=== PATIENT | male | born 1960 | race Two or more races ===

== ENCOUNTER 2017-12-15 17:00 | Emergency (ER) | payer MEDICAID ==
[~2017-12-15] VITALS: Ht 165.1 cm; Wt 49.4 kg
[2017-12-15 18:27] LABS: Basophils # (auto) 0 uL; Basophils % (auto) 0.4 % (0.0-2.0); Eosinophils # (auto) 0.2 uL; Eosinophils % (auto) 1.9 % (0.0-7.0); Hematocrit 43.7 % (41.0-53.0); Hemoglobin 14.6 g/dL (13.5-17.5); Lymphocytes # (auto) 4.9 uL; Lymphocytes % (auto) 52.7 % (10.0-50.0); Mean Corpuscular Hgb Conc. 33.3 g/dL (32.0-36.0); Mean Corpuscular Volume 90.1 fL (80.0-100.0); Monocytes # (auto) 0.7 uL; Monocytes % (auto) 7.3 % (0.0-12.0); Neutrophils # (auto) 3.5 uL; Neutrophils % (auto) 37.7 % (37.0-80.0); Nucleated Red Blood Cells % 0.4 %; Platelet Count (auto) 305 10^3/uL (140-450); Red Blood Cells 4.85 10^6/uL (4.5-5.90); Red Cell Distribution Width 15.4 % (11.8-14.3); White Blood Cell 9.4 10^3/uL (4.4-10.8)
[2017-12-15 18:49] LABS: Alanine Aminotransferase 20 U/L (16-61); Albumin 3.6 g/dL (3.4-5.0); Anion Gap 8 (5-15); Aspartate Aminotransferase 40 U/L (15-37); BUN/Creatinine Ratio 10.3; Blood Urea Nitrogen 10 mg/dL (7-18); Calcium 8.3 mg/dL (8.5-10.1); Carbon Dioxide 26 mmol/L (21-32); Chloride 98 mmol/L (98-107); GFR African American 102 mL/min; GFR Non-African American 84 mL/min; Glucose 105 mg/dL (74-106); Potassium 4.3 mmol/L (3.5-5.1); Sodium 132 mmol/L (136-145)
[2017-12-15 18:53] LABS: Alkaline Phosphatase 154 U/L (45-117); Bilirubin, Total 0.6 mg/dL (0.2-1.0); Total Protein 8.4 g/dL (6.4-8.2)
[2017-12-15] MEDS ORDERED: IOHEXOL 300 MG/ML 100ML BOTTLE IJ ONE (21:33)
[2017-12-15] MEDS ORDERED: SODIUM CHLORIDE 0.9% 1,000 ML IV ONE (22:00)
[2017-12-15] MEDS ORDERED: LEVOFLOXACIN 250 MG TAB PO ONE (23:00)
[2017-12-16 01:00] VITALS: BP 110/76
== END 2017-12-16 03:24 | disposition home or self-care (01) ==
LOC: ER 17:00
DX: J20.9 Acute bronchitis, unspecified (principal)
CPT/HCPCS: 36415; 71046; 71260; 80053; 84484; 85025; 96360; 99285; Q9967

== ENCOUNTER 2017-12-30 14:37 | Emergency (ER) | payer MEDICAID ==
[~2017-12-30] VITALS: Ht 162.6 cm; Wt 54.4 kg
[2017-12-30] MEDS ORDERED: ASPirin 81 mg TAB PO ONE (15:30)
[2017-12-30 15:52] LABS: Basophils # (auto) 0.1 uL; Basophils % (auto) 0.6 % (0.0-2.0); Eosinophils # (auto) 0.2 uL; Eosinophils % (auto) 1.9 % (0.0-7.0); Hematocrit 39.5 % (41.0-53.0); Lymphocytes # (auto) 4.4 uL; Lymphocytes % (auto) 39.5 % (10.0-50.0); Mean Corpuscular Hemoglobin 29.6 pg (28.0-32.0); Mean Corpuscular Hgb Conc. 32.9 g/dL (32.0-36.0); Mean Corpuscular Volume 89.9 fL (80.0-100.0); Monocytes # (auto) 0.5 uL; Monocytes % (auto) 4.7 % (0.0-12.0); Neutrophils # (auto) 5.9 uL; Neutrophils % (auto) 53.3 % (37.0-80.0); Nucleated Red Blood Cells % 0.3 %; Platelet Count (auto) 250 10^3/uL (140-450); Red Blood Cells 4.39 10^6/uL (4.5-5.90); White Blood Cell 11.1 10^3/uL (4.4-10.8)
[2017-12-30 16:20] LABS: Alanine Aminotransferase 18 U/L (16-61); Albumin 3.7 g/dL (3.4-5.0); Alkaline Phosphatase 148 U/L (45-117); Anion Gap 6 (5-15); Aspartate Aminotransferase 44 U/L (15-37); BUN/Creatinine Ratio 14.1; Bilirubin, Total 1.5 mg/dL (0.2-1.0); Blood Urea Nitrogen 11 mg/dL (7-18); Calcium 8.6 mg/dL (8.5-10.1); Carbon Dioxide 28 mmol/L (21-32); Chloride 101 mmol/L (98-107); GFR African American 131 mL/min; GFR Non-African American 108 mL/min; Glucose 95 mg/dL (74-106); Potassium 4.4 mmol/L (3.5-5.1); Sodium 135 mmol/L (136-145); Total Protein 8.5 g/dL (6.4-8.2)
[2017-12-30 19:49] VITALS: BP 135/85
== END 2017-12-30 20:08 | disposition home or self-care (01) ==
LOC: ER 14:37
DX: J40 Bronchitis, not specified as acute or chronic (principal)
CPT/HCPCS: 36415; 71045; 76705; 80053; 84484; 85025; 93005

== ENCOUNTER 2022-04-27 16:57 | Inpatient (IN) | payer MEDICAID ==
[~2022-04-27] VITALS: Ht 167.6 cm; Wt 144.4 kg
[2022-04-27 18:33] LABS: Albumin 4.2 g/dL (3.4-5.0); Calcium 8.3 mg/dL (8.5-10.1); Potassium 4.5 mmol/L (3.5-5.1)
[2022-04-27 18:35] LABS: Hematocrit 18.4 % (41.0-53.0); Mean Corpuscular Hemoglobin 18.2 pg (28.0-32.0); Mean Corpuscular Hgb Conc. 31.4 g/dL (32.0-36.0); Red Blood Cells 3.17 10^6/uL (4.5-5.90); Red Cell Distribution Width 24.4 % (11.8-14.3); White Blood Cell 9.2 10^3/uL (4.4-10.8)
[2022-04-27 18:48] LABS: BUN/Creatinine Ratio 12.9; Bilirubin, Total 1.5 mg/dL (0.2-1.0); Total Protein 8.6 g/dL (6.4-8.2)
[2022-04-27 18:52] LABS: Hemoglobin 5.8 g/dL (13.5-17.5)
[2022-04-27 18:53] LABS: INR 1.04 (0.9-1.15)
[2022-04-27 18:56] LABS: Band Neutrophils % (manual) 0; Basophils % (manual) 0 (0.0-2.0); Blast Cells 0; Metamyelocytes % 0; Myelocytes % 0; Promyelocytes % 0
[2022-04-27 19:25] LABS: Partial Thromboplastin Time 23.8 sec (24.6-33.4)
[2022-04-27 19:44] LABS: Eosinophils % (manual) 1 (0-7); Lymphocytes % (manual) 67 (10.0-50.0); Monocytes % (manual) 4 (0-12); Reactive Lymphocytes 4
[2022-04-27] MEDS ORDERED: DOCUSATE SOD 100 MG CAP PO PRN (23:00)
[2022-04-27] MEDS ORDERED: SODIUM CHLORIDE 0.9% 1,000 ML IV SCH (23:00)
[2022-04-27] MEDS ORDERED: ACETAMINOPHEN 325 MG TAB PO PRN (23:00)
[2022-04-27] MEDS ORDERED: HYDROcodone-ACET 5/325MG TAB PO PRN (23:00)
[2022-04-27] MEDS ORDERED: ONDANSETRON HCL 4 MG/2 ML VIAL IV PRN (23:00)
[2022-04-28] VITALS (12 sets, daily range): BP systolic 105–124; BP diastolic 56–76
[2022-04-28] MEDS ORDERED: MORPHINE SULFATE INJ 2 MG/ml SYRG IV PRN (00:15)
[2022-04-28] MEDS ORDERED: NITROGLYCERIN 0.4 MG SL TAB SL PRN (00:15)
[2022-04-28] MEDS: MULTIPLE VITAMIN TAB PO SCH (09:23)
[2022-04-28] MEDS: THIAMINE 100mg/ml INJ (200mg/2ml VIAL) IV SCH (09:23)
[2022-04-28] MEDS: FAMOTIDINE (10MG/ML) 2ML VL IV SCH (09:23)
[2022-04-28] MEDS ORDERED: MULTIPLE VITAMIN TAB PO SCH (10:00)
[2022-04-28] MEDS ORDERED: ENOXAPARIN SOD 40 MG/0.4 ML SYRINGE SC SCH (10:00)
[2022-04-28 10:30] LABS: Mean Corpuscular Hgb Conc. 32.5 g/dL (32.0-36.0); White Blood Cell 8.2 10^3/uL (4.4-10.8)
[2022-04-28 10:33] LABS: Hematocrit 26.2 % (41.0-53.0); Hemoglobin 8.5 g/dL (13.5-17.5); Mean Corpuscular Hemoglobin 21.5 pg (28.0-32.0); Mean Corpuscular Volume 66.1 fL (80.0-100.0); Red Blood Cells 3.96 10^6/uL (4.5-5.90)
[2022-04-28 10:38] LABS: Red Cell Distribution Width 37.4 % (11.8-14.3)
[2022-04-28 10:40] LABS: Band Neutrophils % (manual) 0; Basophils % (manual) 0 (0.0-2.0); Blast Cells 0; Metamyelocytes % 0; Myelocytes % 0; Promyelocytes % 0; Reactive Lymphocytes 0
[2022-04-28 10:51] LABS: Albumin 3.5 g/dL (3.4-5.0); Calcium 7.8 mg/dL (8.5-10.1); Potassium 4.2 mmol/L (3.5-5.1)
[2022-04-28 10:54] LABS: Bilirubin, Total 2.1 mg/dL (0.2-1.0); Total Protein 7.3 g/dL (6.4-8.2)
[2022-04-28] MEDS: FOLIC ACID 1 MG in D5W 5% 50 ML INJ SCH (11:30)
[2022-04-28 11:36] LABS: Eosinophils % (manual) 1 (0-7); Lymphocytes % (manual) 55 (10.0-50.0); Monocytes % (manual) 8 (0-12)
[2022-04-28] MEDS: SODIUM CHLORIDE 0.9% 1,000 ML IV SCH ×2 (12:54→18:40)
[2022-04-29] MEDS: SODIUM CHLORIDE 0.9% 1,000 ML IV SCH ×3 (01:20→14:40)
[2022-04-29 05:00] VITALS: BP 103/65
[2022-04-29 07:46] LABS: Hemoglobin 8.1 g/dL (13.5-17.5); White Blood Cell 6.8 10^3/uL (4.4-10.8)
[2022-04-29 07:48] LABS: Hematocrit 24.6 % (41.0-53.0); Mean Corpuscular Hgb Conc. 32.9 g/dL (32.0-36.0); Mean Corpuscular Volume 67.1 fL (80.0-100.0); Red Blood Cells 3.67 10^6/uL (4.5-5.90)
[2022-04-29 08:11] LABS: Potassium 4.3 mmol/L (3.5-5.1)
[2022-04-29 08:14] VITALS: BP 109/69
[2022-04-29 08:20] LABS: Red Cell Distribution Width 37.3 % (11.8-14.3)
[2022-04-29 08:22] LABS: Band Neutrophils % (manual) 0; Basophils % (manual) 0 (0.0-2.0); Blast Cells 0; Eosinophils % (manual) 0 (0-7); Metamyelocytes % 0; Myelocytes % 0; Promyelocytes % 0; Reactive Lymphocytes 0
[2022-04-29 08:23] LABS: Albumin 3.2 g/dL (3.4-5.0); BUN/Creatinine Ratio 11.1; Calcium 7.8 mg/dL (8.5-10.1); Total Protein 6.7 g/dL (6.4-8.2)
[2022-04-29] MEDS: MULTIPLE VITAMIN TAB PO SCH (08:57)
[2022-04-29] MEDS: THIAMINE 100mg/ml INJ (200mg/2ml VIAL) IV SCH (08:57)
[2022-04-29 09:05] LABS: Lymphocytes % (manual) 66 (10.0-50.0); Monocytes % (manual) 3 (0-12)
[2022-04-29] MEDS: FAMOTIDINE (10MG/ML) 2ML VL IV SCH (09:27)
[2022-04-29] MEDS: FOLIC ACID 1 MG in D5W 5% 50 ML INJ SCH (10:00)
[2022-04-29] MEDS ORDERED: THIA100T5 PO (10:29)
[2022-04-29] MEDS ORDERED: FOLI1TAB6 PO (10:29)
[2022-04-29] MEDS ORDERED: PANT40T PO (10:29)
[2022-04-29] MEDS ORDERED: FERR-7 PO (10:29)
[2022-04-29 12:20] VITALS: BP 108/68
[2022-04-29 12:52] VITALS: BP 101/55
== END 2022-04-29 14:08 | disposition home or self-care (01) | DRG 663 ==
LOC: ER 16:57 → TELE-WESTW 04-28 00:03 → WEST WING 04-29 10:28
PROVIDERS: ADMIT Nurse Practitioner Family; ATTEND Family Medicine
PROC: 30233N1 Transfusion of Nonautologous Red Blood Cells into Peripheral Vein, Percutaneous Approach (ICD-10-PCS; principal; 2022-04-28)
DX: D64.9 Anemia, unspecified (principal); E87.1 Hypo-osmolality and hyponatremia; F10.10 Alcohol abuse, uncomplicated; Z71.41 Alcohol abuse counseling and surveillance of alcoholic; Z20.822 Contact with and (suspected) exposure to COVID-19
CPT/HCPCS: 36415; 71046; 80053; 85007; 85025; 85027; 85610; 85730; 86850; 86900; 86901; 86920; 96360; 96361; G0378; J3490; J7060

== ENCOUNTER 2022-10-22 11:47 | Inpatient (IN) | payer MEDICAID ==
[~2022-10-22] VITALS: Ht 167.6 cm; Wt 59.5 kg
[2022-10-22] VITALS (8 sets, daily range): BP systolic 113–119; BP diastolic 46–64
[~2022-10-22 11:47] MED LIST: FERR-7 PO; FOLI1TAB6 PO; PANT40T PO; THIA100T5 PO
[2022-10-22 12:32] LABS: Albumin 3.8 g/dL (3.4-5.0); Calcium 8.2 mg/dL (8.5-10.1); Potassium 3.4 mmol/L (3.5-5.1)
[2022-10-22 12:36] LABS: BUN/Creatinine Ratio 12.7; Bilirubin, Total 1.4 mg/dL (0.2-1.0)
[2022-10-22 12:45] LABS: Basophils # (auto) 0.1 10 ^3/uL (0-0.2); Nucleated Red Blood Cells % 1.1 %; White Blood Cell 8.9 10^3/uL (4.4-10.8)
[2022-10-22 12:46] LABS: Basophils % (auto) 1.1 % (0.0-2.0); Eosinophils # (auto) 0.3 10 ^3/uL (0-0.8); Hematocrit 15.5 % (41.0-53.0); Lymphocytes # (auto) 3.3 10 ^3/uL (0.4-5.4); Lymphocytes % (auto) 36.9 % (10.0-50.0); Mean Corpuscular Hemoglobin 15.5 pg (28.0-32.0); Mean Corpuscular Hgb Conc. 27.8 g/dL (32.0-36.0); Mean Corpuscular Volume 55.5 fL (80.0-100.0); Monocytes # (auto) 0.9 10 ^3/uL (0-1.3); Monocytes % (auto) 10.5 % (0.0-12.0); Neutrophils # (auto) 4.3 10 ^3/uL (1.6-8.6); Neutrophils % (auto) 48.5 % (37.0-80.0)
[2022-10-22 12:49] LABS: Red Cell Distribution Width 28.7 % (11.8-14.3)
[2022-10-22 12:52] LABS: Hemoglobin 4.3 g/dL (13.5-17.5)
[2022-10-22 14:22] LABS: INR 1.12 (0.9-1.15); Partial Thromboplastin Time < 20.0 sec (24.6-33.4)
[2022-10-22] MEDS ORDERED: PANTOPRAZOLE 40 MG/10 ML VIAL INJ IV ONE (14:45)
[2022-10-22 16:35] LABS: Amylase 71 U/L (25-115); Lipase 232 U/L (73-393)
[2022-10-22] MEDS: PANTOPRAZOLE 40 MG/10 ML VIAL INJ IV SCH (22:24)
[2022-10-22 22:31] LABS: Hematocrit 20.8 % (41.0-53.0)
[2022-10-22 22:38] LABS: Hemoglobin 6.4 g/dL (13.5-17.5)
[2022-10-23] VITALS (13 sets, daily range): BP systolic 116–136; BP diastolic 58–72
[2022-10-23] MEDS: PANTOPRAZOLE 40 MG/10 ML VIAL INJ IV SCH ×2 (09:49→21:38)
[2022-10-23 10:06] LABS: Potassium 4.1 mmol/L (3.5-5.1)
[2022-10-23 10:19] LABS: Albumin 3.3 g/dL (3.4-5.0); BUN/Creatinine Ratio 18.2; Bilirubin, Total 2.8 mg/dL (0.2-1.0); Calcium 8.1 mg/dL (8.5-10.1)
[2022-10-23 11:20] LABS: Basophils # (auto) 0 10 ^3/uL (0-0.2); Basophils % (auto) 0.4 % (0.0-2.0); Eosinophils # (auto) 0.1 10 ^3/uL (0-0.8); Hematocrit 29.2 % (41.0-53.0); Lymphocytes # (auto) 6.1 10 ^3/uL (0.4-5.4); Lymphocytes % (auto) 53.2 % (10.0-50.0); Mean Corpuscular Hemoglobin 24.2 pg (28.0-32.0); Mean Corpuscular Hgb Conc. 34.3 g/dL (32.0-36.0); Mean Corpuscular Volume 70.5 fL (80.0-100.0); Monocytes # (auto) 0.6 10 ^3/uL (0-1.3); Monocytes % (auto) 5.1 % (0.0-12.0); Neutrophils # (auto) 4.6 10 ^3/uL (1.6-8.6); Neutrophils % (auto) 40.3 % (37.0-80.0); Nucleated Red Blood Cells % 0.6 %; Red Blood Cells 4.14 10^6/uL (4.5-5.90); White Blood Cell 11.4 10^3/uL (4.4-10.8)
[2022-10-23 11:21] LABS: Red Cell Distribution Width 36.3 % (11.8-14.3)
[2022-10-23 12:34] LABS: Thyroid Stimulating Hormone 2.33 uIU/mL (0.358-3.74)
[2022-10-23 14:43] LABS: Carcinoembryonic Antigen 1.34 ng/mL (<5.0 OR =)
[2022-10-23 19:03] LABS: Hematocrit 31.7 % (41.0-53.0); Hemoglobin 10.6 g/dL (13.5-17.5)
[2022-10-23 22:54] LABS: Folate (Folic Acid) 8.66 ng/mL (5.38-24)
[2022-10-24 08:00] VITALS: BP 127/71
[2022-10-24 09:00] VITALS: BP 127/71
[2022-10-24] MEDS: PANTOPRAZOLE 40 MG/10 ML VIAL INJ IV SCH ×2 (09:05→22:15)
[2022-10-24] MEDS ORDERED: PROPOFOL 10 MG/ML 20 ML IV ONE (14:44)
[2022-10-24] MEDS ORDERED: LIDOCAINE 2% (LOCAL ANESTH.) PF 5ml SDV ONE (14:44)
[2022-10-24 17:00] VITALS: BP 123/69
[2022-10-24] MEDS ORDERED: IOHEXOL 350 MG/ML 100ML IJ ONE (17:23)
[2022-10-24 20:00] VITALS: BP 127/71
[2022-10-24 22:00] VITALS: BP 111/65
[2022-10-25 05:00] VITALS: BP 107/68
[2022-10-25 08:59] VITALS: BP 111/67
[2022-10-25] MEDS: PANTOPRAZOLE 40 MG/10 ML VIAL INJ IV SCH ×2 (09:00→22:00)
[2022-10-25 13:00] VITALS: BP 111/71
[2022-10-25 13:59] LABS: Hepatitis C Antibody Negative (Negative)
[2022-10-25 17:00] VITALS: BP 114/79
[2022-10-25 22:00] VITALS: BP 102/64
[2022-10-26 05:00] VITALS: BP 111/64
[2022-10-26] MEDS ORDERED: SUCCINYLCHOLINE CHLORIDE 20 MG/ML 10ML VIAL IV ONE (07:15)
[2022-10-26 08:00] VITALS: BP 115/69
[2022-10-26 09:00] VITALS: BP 103/65
[2022-10-26 09:10] LABS: Hemoglobin 9.6 g/dL (13.5-17.5)
[2022-10-26 09:13] LABS: Hematocrit 28.8 % (41.0-53.0)
[2022-10-26] MEDS: PANTOPRAZOLE 40 MG/10 ML VIAL INJ IV SCH ×2 (10:00→21:51)
[2022-10-26 13:00] VITALS: BP 107/61
[2022-10-26 16:55] VITALS: BP 115/69
[2022-10-26 22:10] VITALS: BP 112/69
[2022-10-27 05:00] VITALS: BP 99/60
[2022-10-27 08:00] VITALS: BP 115/69
[2022-10-27 09:00] VITALS: BP 97/60
[2022-10-27] MEDS: PANTOPRAZOLE 40 MG/10 ML VIAL INJ IV SCH ×2 (10:00→22:14)
[2022-10-27 13:00] VITALS: BP 105/69
[2022-10-27 16:30] VITALS: BP 98/64
[2022-10-27] MEDS: Ensure HIGH Protein Chocolate 8oz Bottle PO SCH (18:50)
[2022-10-27 21:57] VITALS: BP 97/62
[2022-10-28 05:00] VITALS: BP 93/60
[2022-10-28 08:00] VITALS: BP 115/69
[2022-10-28] MEDS: Ensure HIGH Protein Chocolate 8oz Bottle PO SCH ×3 (08:26→18:00)
[2022-10-28 09:04] VITALS: BP 103/64
[2022-10-28] MEDS: PANTOPRAZOLE 40 MG/10 ML VIAL INJ IV SCH ×2 (09:39→23:06)
[2022-10-28 13:00] VITALS: BP 101/58
[2022-10-28 17:00] VITALS: BP 105/65
[2022-10-28 22:00] VITALS: BP 99/71
[2022-10-29 03:08] LABS: Urine Bacteria NONE SEEN /hpf (None Seen); Urine Blood Negative /uL (Negative); Urine Specific Gravity 1.007 (1.001-1.035); Urine WBC 1 /hpf (0 - 3)
[2022-10-29 05:00] VITALS: BP 100/59
[2022-10-29] MEDS ORDERED: BUPIVACAINE W/ EPINEPH 0.25% INJ 50ML MDV ONE (07:10)
[2022-10-29] MEDS ORDERED: ceFAZolin 1GM/50ML 0 ML IV ONE (07:21)
[2022-10-29] MEDS: Ensure HIGH Protein Chocolate 8oz Bottle PO SCH ×3 (08:19→18:00)
[2022-10-29 09:00] VITALS: BP 98/61
[2022-10-29] MEDS: PANTOPRAZOLE 40 MG/10 ML VIAL INJ IV SCH ×2 (09:49→21:33)
[2022-10-29 13:00] VITALS: BP 113/77
[2022-10-29 17:00] VITALS: BP 105/69
[2022-10-29 22:00] VITALS: BP 100/60
[2022-10-30 05:00] VITALS: BP 94/49
[2022-10-30] MEDS ORDERED: BUPIVACAINE W/ EPINEPH 0.25% INJ 50ML MDV ONE (07:05)
[2022-10-30] MEDS ORDERED: LIDOCAINE 1%HCL (LOCAL ANESTH) 10 ML MDV ONE (07:07)
[2022-10-30] MEDS ORDERED: ceFAZolin 1GM/50ML 100 ML IV ONE (07:18)
[2022-10-30] MEDS ORDERED: LIDOCAINE W/ EPINEPHRINE 2% INJ 20ML VIAL ONE (07:23)
[2022-10-30] MEDS ORDERED: fentaNYL CITRATE 100 MCG/2 ML VL ONE (07:32)
[2022-10-30] MEDS ORDERED: MIDAZOLAM HCL 2MG/2ML 2ml VIAL (1mg/ml) ONE (07:32)
[2022-10-30 07:39] LABS: Basophils # (auto) 0 10 ^3/uL (0-0.2); Basophils % (auto) 0.6 % (0.0-2.0); Eosinophils # (auto) 0.2 10 ^3/uL (0-0.8); Eosinophils % (auto) 2.9 % (0.0-7.0); Hematocrit 28.4 % (41.0-53.0); Hemoglobin 9.8 g/dL (13.5-17.5); Lymphocytes # (auto) 4.3 10 ^3/uL (0.4-5.4); Mean Corpuscular Hemoglobin 24.9 pg (28.0-32.0); Mean Corpuscular Hgb Conc. 34.6 g/dL (32.0-36.0); Mean Corpuscular Volume 71.9 fL (80.0-100.0); Monocytes # (auto) 0.6 10 ^3/uL (0-1.3); Monocytes % (auto) 7.9 % (0.0-12.0); Neutrophils # (auto) 1.9 10 ^3/uL (1.6-8.6); Neutrophils % (auto) 27.3 % (37.0-80.0); Nucleated Red Blood Cells % 0.2 %; Red Blood Cells 3.95 10^6/uL (4.5-5.90); Red Cell Distribution Width 37.1 % (11.8-14.3)
[2022-10-30 07:40] LABS: Lymphocytes % (auto) 61.3 % (10.0-50.0)
[2022-10-30] MEDS ORDERED: LIDOCAINE HCL 2 %PF INJ 10ML AMP IJ ONE (07:41)
[2022-10-30 07:51] LABS: Albumin 3.4 g/dL (3.4-5.0); BUN/Creatinine Ratio 18.4; Calcium 8.7 mg/dL (8.5-10.1); Potassium 4.3 mmol/L (3.5-5.1)
[2022-10-30 07:54] LABS: Bilirubin, Total 0.9 mg/dL (0.2-1.0); Total Protein 7.7 g/dL (6.4-8.2)
[2022-10-30 08:01] LABS: INR 1.06 (0.9-1.15); Partial Thromboplastin Time 27.6 sec (24.6-33.4)
[2022-10-30] MEDS ORDERED: PROPOFOL 10 MG/ML 20 ML IV ONE (08:35)
[2022-10-30] MEDS ORDERED: GLYCOPYRROLATE 0.2 MG/ML 1ML VIAL ONE (08:36)
[2022-10-30] MEDS ORDERED: NEOSTIGMINE 1 MG/ML INJ (10mg/10ML VIAL) ONE (08:36)
[2022-10-30] MEDS ORDERED: ONDANSETRON HCL 4 MG/2 ML VIAL IV PRN (09:00)
[2022-10-30] MEDS ORDERED: HYDROmorphone HCL 2 MG/ML VL/or syr IV PRN (09:00)
[2022-10-30] MEDS: PANTOPRAZOLE 40 MG/10 ML VIAL INJ IV SCH (10:46)
[2022-10-30] MEDS ORDERED: SUCCINYLCHOLINE CHLORIDE 20 MG/ML 10ML VIAL IV ONE (11:27)
[2022-10-30] MEDS ORDERED: FERR-7 PO (12:12)
[2022-10-30 12:30] VITALS: BP 86/45
[2022-10-30 17:00] VITALS: BP 99/63
[2022-10-30] MEDS ORDERED: ACETAMINOPHEN 325 MG TAB PO ONE (18:00)
[2022-10-30] MEDS ORDERED: ROCURONIUM 10MG/ML 10ML VIAL IV ONE (18:59)
== END 2022-10-30 19:00 | disposition home or self-care (01) | DRG 663 ==
LOC: ER 11:47 → EDBD 11:47 → TELE 14:46 → TELE-WESTW 10-23 21:36
PROVIDERS: ADMIT Registered Nurse; ATTEND Nurse Practitioner Acute Care
PROC: 30233N1 Transfusion of Nonautologous Red Blood Cells into Peripheral Vein, Percutaneous Approach (ICD-10-PCS; 2022-10-22)
PROC: 0DB68ZX Excision of Stomach, Via Natural or Artificial Opening Endoscopic, Diagnostic (ICD-10-PCS; 2022-10-24)
PROC: 0DB98ZX Excision of Duodenum, Via Natural or Artificial Opening Endoscopic, Diagnostic (ICD-10-PCS; principal; 2022-10-24 14:44)
PROC: 07B20ZX Excision of Left Neck Lymphatic, Open Approach, Diagnostic (ICD-10-PCS; 2022-10-30)
DX: D64.9 Anemia, unspecified (principal); R64 Cachexia; K74.60 Unspecified cirrhosis of liver; I95.9 Hypotension, unspecified; D72.829 Elevated white blood cell count, unspecified; R59.0 Localized enlarged lymph nodes; K29.70 Gastritis, unspecified, without bleeding; K44.9 Diaphragmatic hernia without obstruction or gangrene; Z20.822 Contact with and (suspected) exposure to COVID-19; Z68.1 Body mass index [BMI] 19.9 or less, adult; Z83.3 Family history of diabetes mellitus; Z86.11 Personal history of tuberculosis
CPT/HCPCS: 36415; 36430; 70491; 71045; 74176; 80053; 81001; 82105; 82150; 82306; 82378; 82746; 82962; 83010; 83615; 83690; 84443; 85014; 85018; 85025; 85045; 85610; 85730; 86301; 86703; 86803; 86850; 86880; 86900; 86901; 86920; 87340; 87426; 93005; C9113; G0378; J0330; J0690; J2001; J2250; J2704

== ENCOUNTER 2023-01-10 16:05 | Inpatient (IN) | payer MEDICAID, OTHER ==
[~2023-01-10] VITALS: Ht 167.6 cm; Wt 57.0 kg
[2023-01-10] VITALS (7 sets, daily range): BP systolic 96–106; BP diastolic 51–60
[2023-01-10 17:18] LABS: Albumin 3.7 g/dL (3.4-5.0); Calcium 8.8 mg/dL (8.5-10.1); Potassium 3.9 mmol/L (3.5-5.1)
[2023-01-10 17:21] LABS: BUN/Creatinine Ratio 24.4 (10.0-20.0); Bilirubin, Total 1.4 mg/dL (0.2-1.0); Total Protein 8.7 g/dL (6.4-8.2)
[2023-01-10 17:23] LABS: INR 1.08 (0.9-1.15)
[2023-01-10 18:11] LABS: Hematocrit 21.2 % (41.0-53.0); Mean Corpuscular Hemoglobin 18.2 pg (28.0-32.0); Mean Corpuscular Hgb Conc. 29.3 g/dL (32.0-36.0); Mean Corpuscular Volume 62.2 fL (80.0-100.0)
[2023-01-10 18:29] LABS: Hemoglobin 6.2 g/dL (13.5-17.5); Red Cell Distribution Width 34.9 % (11.8-14.3)
[2023-01-10 18:30] LABS: Band Neutrophils % (manual) 0; Basophils % (manual) 0 (0.0-2.0); Blast Cells 0; Eosinophils % (manual) 0 (0-7); Metamyelocytes % 0; Myelocytes % 0; Promyelocytes % 0; Reactive Lymphocytes 0
[2023-01-10 19:11] LABS: % Iron Saturation 93.5 % (20-55)
[2023-01-10 19:22] LABS: Lymphocytes % (manual) 67 (10.0-50.0); Monocytes % (manual) 4 (0-12)
[2023-01-10 20:20] LABS: Hemoglobin 5.7 g/dL (13.5-17.5)
[2023-01-10] MEDS ORDERED: TEMAZEPAM 15 MG CAP PO PRN (21:30)
[2023-01-10] MEDS ORDERED: HYDROcodone-ACET 5/325MG TAB PO PRN (21:30)
[2023-01-10] MEDS ORDERED: ONDANSETRON HCL 4 MG/2 ML VIAL IV PRN (21:30)
[2023-01-11] VITALS (14 sets, daily range): BP systolic 91–107; BP diastolic 54–59
[2023-01-11 05:27] LABS: Hematocrit 28.8 % (41.0-53.0)
[2023-01-11 05:30] LABS: Hemoglobin 9.3 g/dL (13.5-17.5); Mean Corpuscular Hemoglobin 22.6 pg (28.0-32.0); Mean Corpuscular Hgb Conc. 32.3 g/dL (32.0-36.0); Mean Corpuscular Volume 69.9 fL (80.0-100.0); Red Blood Cells 4.12 10^6/uL (4.5-5.90); White Blood Cell 12.9 10^3/uL (4.4-10.8)
[2023-01-11 05:32] LABS: Red Cell Distribution Width 32.7 % (11.8-14.3)
[2023-01-11 05:34] LABS: Basophils % (manual) 0 (0.0-2.0); Blast Cells 0; Metamyelocytes % 0; Myelocytes % 0; Promyelocytes % 0; Reactive Lymphocytes 0
[2023-01-11 05:39] LABS: Potassium 4.3 mmol/L (3.5-5.1)
[2023-01-11 05:43] LABS: Albumin 3.5 g/dL (3.4-5.0); BUN/Creatinine Ratio 25.3 (10.0-20.0); Calcium 8.5 mg/dL (8.5-10.1)
[2023-01-11 05:58] LABS: Bilirubin, Total 2.4 mg/dL (0.2-1.0)
[2023-01-11 08:42] LABS: Band Neutrophils % (manual) 1; Eosinophils % (manual) 1 (0-7); Lymphocytes % (manual) 86 (10.0-50.0); Monocytes % (manual) 1 (0-12)
[2023-01-11] MEDS: PANTOPRAZOLE 40 MG TAB PO SCH (10:15)
[2023-01-12 05:00] VITALS: BP 90/50
[2023-01-12] MEDS: PANTOPRAZOLE 40 MG TAB PO SCH (08:18)
[2023-01-12 08:47] VITALS: BP 95/53
[2023-01-12 12:25] VITALS: BP 100/60
[2023-01-12 14:45] LABS: Hematocrit 29.6 % (41.0-53.0); Hemoglobin 9.7 g/dL (13.5-17.5); Mean Corpuscular Hemoglobin 22.5 pg (28.0-32.0); Mean Corpuscular Hgb Conc. 32.9 g/dL (32.0-36.0); Mean Corpuscular Volume 68.3 fL (80.0-100.0); Red Blood Cells 4.33 10^6/uL (4.5-5.90); White Blood Cell 12.8 10^3/uL (4.4-10.8)
[2023-01-12 14:54] LABS: Red Cell Distribution Width 33.2 % (11.8-14.3)
[2023-01-12 14:55] LABS: Basophils % (manual) 0 (0.0-2.0); Blast Cells 0; Eosinophils % (manual) 0 (0-7); Metamyelocytes % 0; Myelocytes % 0; Promyelocytes % 0; Reactive Lymphocytes 0
[2023-01-12 15:53] LABS: Band Neutrophils % (manual) 1; Lymphocytes % (manual) 74 (10.0-50.0); Monocytes % (manual) 3 (0-12)
== END 2023-01-12 16:56 | disposition home or self-care (01) | DRG 663 ==
LOC: ER 16:05 → EDUNIT# 16:05 → OVERFLOW 21:24 → EAST 22:21
PROVIDERS: ADMIT Nurse Practitioner; ATTEND Internal Medicine
PROC: 30233N1 Transfusion of Nonautologous Red Blood Cells into Peripheral Vein, Percutaneous Approach (ICD-10-PCS; principal; 2023-01-10)
DX: D64.9 Anemia, unspecified (principal); R64 Cachexia; C85.10 Unspecified B-cell lymphoma, unspecified site; Z20.822 Contact with and (suspected) exposure to COVID-19; R74.01 Elevation of levels of liver transaminase levels; Z68.20 Body mass index [BMI] 20.0-20.9, adult; Z83.3 Family history of diabetes mellitus; Z85.6 Personal history of leukemia
CPT/HCPCS: 36415; 36430; 80053; 83540; 83550; 85007; 85014; 85018; 85027; 85045; 85610; 85730; 86850; 86900; 86901; 86920; 87426; 93005; G0378

== ENCOUNTER 2023-02-27 14:27 | Inpatient (IN) | payer MEDICAID ==
[~2023-02-27] VITALS: Ht 165.1 cm; Wt 58.0 kg
[2023-02-27] MEDS ORDERED: SODIUM CHLORIDE 0.9% 1,000 ML IV ONE (15:30)
[2023-02-27] MEDS ORDERED: ACETAMINOPHEN 500 MG TAB PO ONE (15:30)
[2023-02-27 15:43] LABS: Eosinophils # (auto) 0.2 10 ^3/uL (0-0.8); Lymphocytes # (auto) 0.5 10 ^3/uL (0.4-5.4); Monocytes # (auto) 0.6 10 ^3/uL (0-1.3); White Blood Cell 3.3 10^3/uL (4.4-10.8)
[2023-02-27 15:45] LABS: Basophils # (auto) 0 10 ^3/uL (0-0.2); Basophils % (auto) 1.3 % (0.0-2.0); Eosinophils % (auto) 7.1 % (0.0-7.0); Hematocrit 21.6 % (41.0-53.0); Mean Corpuscular Hemoglobin 17.5 pg (28.0-32.0); Mean Corpuscular Hgb Conc. 29.4 g/dL (32.0-36.0); Mean Corpuscular Volume 59.8 fL (80.0-100.0); Neutrophils # (auto) 1.9 10 ^3/uL (1.6-8.6); Nucleated Red Blood Cells % 0.8 %; Red Blood Cells 3.61 10^6/uL (4.5-5.90)
[2023-02-27 15:47] LABS: Monocytes % (auto) 18.6 % (0.0-12.0)
[2023-02-27 15:51] LABS: Red Cell Distribution Width 36.7 % (11.8-14.3)
[2023-02-27 16:00] LABS: Potassium 3.8 mmol/L (3.5-5.1)
[2023-02-27 16:01] LABS: Lactic Acid w/Reflex 2.6 mmol/L (0.4-2.0)
[2023-02-27 16:06] LABS: Albumin 3.8 g/dL (3.4-5.0); BUN/Creatinine Ratio 20.7 (10.0-20.0); Bilirubin, Total 2.2 mg/dL (0.2-1.0); Calcium 8.3 mg/dL (8.5-10.1)
[2023-02-27 16:09] LABS: INR 1.17 (0.9-1.15); Partial Thromboplastin Time 26.6 sec (24.6-33.4)
[2023-02-27] MEDS ORDERED: PIPERACILLIN-TAZO 4.5GM 100 ML IV ONE (17:30)
[2023-02-27] MEDS ORDERED: IOHEXOL 300 MG/ML 100ML BOTTLE IJ ONE (17:54)
[2023-02-27] MEDS ORDERED: NITROGLYCERIN 0.4 MG SL TAB SL PRN (21:15)
[2023-02-27] MEDS ORDERED: ONDANSETRON HCL 4 MG/2 ML VIAL IV PRN (21:15)
[2023-02-27] MEDS ORDERED: MORPHINE SULFATE INJ 2 MG/ml SYRG IV PRN (21:15)
[2023-02-27] MEDS ORDERED: PANTOPRAZOLE 40 MG/10 ML VIAL INJ IV ONE (21:45)
[2023-02-27 22:09] VITALS: BP 88/49
[2023-02-27 22:15] LABS: Urine Bacteria NONE SEEN /hpf (None Seen); Urine Blood Negative /uL (Negative); Urine Specific Gravity 1.026 (1.001-1.035); Urine WBC <1 /hpf (0 - 3)
[2023-02-27 22:24] VITALS: BP 88/46
[2023-02-28] VITALS (7 sets, daily range): BP systolic 89–113; BP diastolic 47–62
[2023-02-28] MEDS: CEFEPIME 1GM/ 50ML 50 ML IV SCH ×4 (00:09→23:03)
[2023-02-28] MEDS: FERROUS SULFATE 325mg EC TAB PO SCH ×3 (00:09→22:00)
[2023-02-28] MEDS: SODIUM CHLORIDE 0.9% 1,000 ML IV SCH ×2 (00:10→14:24)
[2023-02-28] MEDS ORDERED: ACETAMINOPHEN 325 MG TAB PO PRN (04:45)
[2023-02-28 05:55] LABS: Lymphocytes # (auto) 0.3 10 ^3/uL (0.4-5.4); Monocytes # (auto) 0.4 10 ^3/uL (0-1.3); Neutrophils # (auto) 2.2 10 ^3/uL (1.6-8.6)
[2023-02-28 05:57] LABS: Basophils # (auto) 0.1 10 ^3/uL (0-0.2); Basophils % (auto) 1.7 % (0.0-2.0); Eosinophils # (auto) 0.3 10 ^3/uL (0-0.8); Hematocrit 21.8 % (41.0-53.0); Mean Corpuscular Hemoglobin 19.6 pg (28.0-32.0); Mean Corpuscular Hgb Conc. 31.7 g/dL (32.0-36.0); Mean Corpuscular Volume 61.8 fL (80.0-100.0); Monocytes % (auto) 13.8 % (0.0-12.0); Neutrophils % (auto) 68.5 % (37.0-80.0); Nucleated Red Blood Cells % 0.5 %; Red Blood Cells 3.53 10^6/uL (4.5-5.90); White Blood Cell 3.2 10^3/uL (4.4-10.8)
[2023-02-28 06:08] LABS: Potassium 3.8 mmol/L (3.5-5.1)
[2023-02-28 06:18] LABS: Albumin 3.2 g/dL (3.4-5.0); BUN/Creatinine Ratio 20.3 (10.0-20.0); Bilirubin, Total 3.3 mg/dL (0.2-1.0); Calcium 7.7 mg/dL (8.5-10.1); Total Protein 6.3 g/dL (6.4-8.2)
[2023-02-28 06:23] LABS: Red Cell Distribution Width 33.2 % (11.8-14.3)
[2023-02-28 06:24] LABS: Hemoglobin 6.9 g/dL (13.5-17.5)
[2023-02-28] MEDS: PANTOPRAZOLE 40 MG/10 ML VIAL INJ IV SCH (11:44)
[2023-02-28] MEDS: THIAMINE HCL 100 MG TAB PO SCH (11:45)
[2023-02-28] MEDS: FOLIC ACID 1 MG TAB PO SCH (11:45)
[2023-02-28 15:27] LABS: Hemoglobin 6.3 g/dL (13.5-17.5)
[2023-02-28 15:42] LABS: Eosinophils # (auto) 0.3 10 ^3/uL (0-0.8); Mean Corpuscular Volume 64.8 fL (80.0-100.0); Neutrophils # (auto) 1.8 10 ^3/uL (1.6-8.6); Neutrophils % (auto) 63.6 % (37.0-80.0)
[2023-02-28 15:44] LABS: Basophils # (auto) 0.1 10 ^3/uL (0-0.2); Eosinophils % (auto) 10.6 % (0.0-7.0); Hematocrit 24.4 % (41.0-53.0); Hemoglobin 7.8 g/dL (13.5-17.5); Lymphocytes # (auto) 0.2 10 ^3/uL (0.4-5.4); Lymphocytes % (auto) 8.1 % (10.0-50.0); Mean Corpuscular Hemoglobin 20.6 pg (28.0-32.0); Mean Corpuscular Hgb Conc. 31.8 g/dL (32.0-36.0); Monocytes # (auto) 0.5 10 ^3/uL (0-1.3); Monocytes % (auto) 15.7 % (0.0-12.0); Nucleated Red Blood Cells % 0.1 %; Red Blood Cells 3.77 10^6/uL (4.5-5.90); White Blood Cell 2.9 10^3/uL (4.4-10.8)
[2023-02-28 15:45] LABS: Red Cell Distribution Width 34.1 % (11.8-14.3)
[2023-02-28] MEDS ORDERED: HYDROcodone-ACET 5/325MG TAB PO PRN (18:30)
[2023-03-01] MEDS: SODIUM CHLORIDE 0.9% 1,000 ML IV SCH ×2 (00:25→13:59)
[2023-03-01 05:00] VITALS: BP 101/65
[2023-03-01] MEDS: CEFEPIME 1GM/ 50ML 50 ML IV SCH ×2 (06:00→15:04)
[2023-03-01 07:00] LABS: Hemoglobin 8.3 g/dL (13.5-17.5); Lymphocytes # (auto) 0.3 10 ^3/uL (0.4-5.4); Monocytes # (auto) 0.6 10 ^3/uL (0-1.3); Nucleated Red Blood Cells % 0.2 %
[2023-03-01 07:04] LABS: Basophils # (auto) 0.1 10 ^3/uL (0-0.2); Basophils % (auto) 1.8 % (0.0-2.0); Eosinophils # (auto) 0.3 10 ^3/uL (0-0.8); Eosinophils % (auto) 10.5 % (0.0-7.0); Hematocrit 26.1 % (41.0-53.0); Lymphocytes % (auto) 9.8 % (10.0-50.0); Mean Corpuscular Hemoglobin 20.9 pg (28.0-32.0); Mean Corpuscular Hgb Conc. 31.7 g/dL (32.0-36.0); Mean Corpuscular Volume 66.2 fL (80.0-100.0); Monocytes % (auto) 17.2 % (0.0-12.0); Neutrophils # (auto) 1.9 10 ^3/uL (1.6-8.6); Neutrophils % (auto) 60.7 % (37.0-80.0); Red Blood Cells 3.95 10^6/uL (4.5-5.90); White Blood Cell 3.2 10^3/uL (4.4-10.8)
[2023-03-01 07:05] LABS: Potassium 3.7 mmol/L (3.5-5.1)
[2023-03-01 07:06] LABS: Red Cell Distribution Width 34.4 % (11.8-14.3)
[2023-03-01 08:52] VITALS: BP 101/57
[2023-03-01] MEDS: FOLIC ACID 1 MG TAB PO SCH (09:56)
[2023-03-01] MEDS: THIAMINE HCL 100 MG TAB PO SCH (09:56)
[2023-03-01] MEDS: PANTOPRAZOLE 40 MG/10 ML VIAL INJ IV SCH (09:56)
[2023-03-01] MEDS: FERROUS SULFATE 325mg EC TAB PO SCH (09:57)
[2023-03-01] MEDS ORDERED: AMOX500T86 PO (10:07)
[2023-03-01 13:00] VITALS: BP 99/56
[2023-03-01 14:44] VITALS: BP 99/56
== END 2023-03-01 17:25 | disposition home health service (06) | DRG 720 ==
LOC: ER 14:27 → TELE 21:33 → TELE-CENTR 02-28 16:56
PROVIDERS: ADMIT Registered Nurse; ATTEND Internal Medicine Pulmonary Disease
PROC: 30233N1 Transfusion of Nonautologous Red Blood Cells into Peripheral Vein, Percutaneous Approach (ICD-10-PCS; principal; 2023-02-27)
DX: A41.9 Sepsis, unspecified organism (principal); R64 Cachexia; C85.10 Unspecified B-cell lymphoma, unspecified site; D62 Acute posthemorrhagic anemia; E87.1 Hypo-osmolality and hyponatremia; Z83.3 Family history of diabetes mellitus; Z86.11 Personal history of tuberculosis; Z68.21 Body mass index [BMI] 21.0-21.9, adult; R74.01 Elevation of levels of liver transaminase levels
CPT/HCPCS: 36415; 71045; 74177; 80048; 80053; 81001; 82270; 83605; 84484; 85025; 85610; 85730; 86850; 86900; 86901; 86920; 87040; 87086; 93005; 96361; 96365; C9113; G0378; J2543

== ENCOUNTER 2023-03-16 18:27 | Inpatient (IN) | payer MEDICAID ==
[~2023-03-16] VITALS: Ht 165.1 cm; Wt 60.1 kg
[~2023-03-16 18:27] MED LIST changes: +AMOX500T86 PO; +FOLI-119 PO; -FOLI1TAB6 PO
[2023-03-16] MEDS ORDERED: ONDANSETRON HCL 4 MG/2 ML VIAL IV ONE (19:45)
[2023-03-16] MEDS ORDERED: MORPHINE SULFATE 4 MG/ML SYR/VIAL IV ONE (19:45)
[2023-03-16] MEDS ORDERED: SODIUM CHLORIDE 0.9% 1,650 ML IV ONE (19:45)
[2023-03-16] MEDS ORDERED: VANCOMYCIN PER PHARMACY 0 MG IV SCH (20:00)
[2023-03-16 20:16] LABS: Basophils # (auto) 0 10 ^3/uL (0-0.2); Basophils % (auto) 0.1 % (0.0-2.0); Eosinophils # (auto) 0 10 ^3/uL (0-0.8); Hemoglobin 7.2 g/dL (13.5-17.5); Lymphocytes # (auto) 0.3 10 ^3/uL (0.4-5.4)
[2023-03-16 20:18] LABS: Hematocrit 23.3 % (41.0-53.0); Lymphocytes % (auto) 1.6 % (10.0-50.0); Mean Corpuscular Hemoglobin 20.5 pg (28.0-32.0); Mean Corpuscular Volume 66.1 fL (80.0-100.0); Monocytes # (auto) 1.2 10 ^3/uL (0-1.3); Neutrophils # (auto) 18.4 10 ^3/uL (1.6-8.6); Neutrophils % (auto) 92.3 % (37.0-80.0); Red Blood Cells 3.52 10^6/uL (4.5-5.90)
[2023-03-16 20:29] LABS: Alanine Aminotransferase 18 U/L (16-61); Albumin 2.7 g/dL (3.4-5.0); Anion Gap 9 (5-15); Aspartate Aminotransferase 14 U/L (15-37); BUN/Creatinine Ratio 24.3 (10.0-20.0); Blood Urea Nitrogen 18 mg/dL (7-18); Calcium 6.7 mg/dL (8.5-10.1); Carbon Dioxide 24 mmol/L (21-32); Chloride 98 mmol/L (98-107); GFR African American 137 mL/min; GFR Non-African American 113 mL/min; Glucose 120 mg/dL (74-106); Lipase 76 U/L (73-393); Potassium 3.5 mmol/L (3.5-5.1); Sodium 131 mmol/L (136-145)
[2023-03-16 20:31] LABS: INR 1.33 (0.9-1.15)
[2023-03-16 20:32] LABS: Alkaline Phosphatase 98 U/L (45-117); Bilirubin, Total 1.7 mg/dL (0.2-1.0); Total Protein 5.6 g/dL (6.4-8.2)
[2023-03-16] MEDS ORDERED: VANCOMYCIN 1GM/250ML 250 ML IV ONE (21:00)
[2023-03-16 21:25] LABS: Red Cell Distribution Width 35.4 % (11.8-14.3)
[2023-03-16] MEDS ORDERED: CEFEPIME 2 GM in D5W 5% 50 ML IV SCH (22:00)
[2023-03-16] MEDS ORDERED: ALBUMIN 25% 100 ML IV ONE (22:30)
[2023-03-16] MEDS ORDERED: DOCUSATE SOD 100 MG CAP PO PRN (22:30)
[2023-03-16] MEDS ORDERED: HYDROcodone-ACET 5/325MG TAB PO PRN (22:30)
[2023-03-16] MEDS ORDERED: ACETAMINOPHEN 325 MG TAB PO PRN (22:30)
[2023-03-16] MEDS ORDERED: CALCIUM GLUC 1,000mg/50ml-NS 50 ML IV ONE (22:30)
[2023-03-16] MEDS ORDERED: ONDANSETRON HCL 4 MG/2 ML VIAL IV PRN (22:30)
[2023-03-16] MEDS: SODIUM CHLORIDE 0.9% 1,000 ML IV SCH (22:30)
[2023-03-16] MEDS ORDERED: NITROGLYCERIN 0.4 MG SL TAB SL PRN (23:15)
[2023-03-16] MEDS ORDERED: MORPHINE SULFATE INJ 2 MG/ml SYRG IV PRN (23:15)
[2023-03-17] VITALS (9 sets, daily range): BP systolic 85–110; BP diastolic 50–64
[2023-03-17] MEDS ORDERED: cefTRIAXone 1GM/50ML D5W 50 ML IV ONE (00:45)
[2023-03-17 01:27] LABS: Urine WBC None Seen /hpf (0 - 3)
[2023-03-17 01:44] LABS: Urine Bacteria NONE SEEN /hpf (None Seen); Urine Blood Negative /uL (Negative); Urine Specific Gravity 1.009 (1.001-1.035)
[2023-03-17 03:58] LABS: Basophils # (auto) 0 10 ^3/uL (0-0.2); Eosinophils # (auto) 0 10 ^3/uL (0-0.8); Monocytes # (auto) 1.1 10 ^3/uL (0-1.3)
[2023-03-17 04:01] LABS: Basophils % (auto) 0.1 % (0.0-2.0); Lymphocytes # (auto) 0.2 10 ^3/uL (0.4-5.4); Lymphocytes % (auto) 1.2 % (10.0-50.0); Mean Corpuscular Hemoglobin 20.1 pg (28.0-32.0); Mean Corpuscular Hgb Conc. 31.4 g/dL (32.0-36.0); Mean Corpuscular Volume 63.8 fL (80.0-100.0); Neutrophils # (auto) 17.2 10 ^3/uL (1.6-8.6); Neutrophils % (auto) 92.7 % (37.0-80.0); Nucleated Red Blood Cells % 0.1 %; Red Blood Cells 3.44 10^6/uL (4.5-5.90); White Blood Cell 18.5 10^3/uL (4.4-10.8)
[2023-03-17 04:10] LABS: Albumin 3.2 g/dL (3.4-5.0); Calcium 6.7 mg/dL (8.5-10.1); Potassium 3.5 mmol/L (3.5-5.1)
[2023-03-17 04:16] LABS: BUN/Creatinine Ratio 19.7 (10.0-20.0); Bilirubin, Total 2.1 mg/dL (0.2-1.0); Total Protein 5.7 g/dL (6.4-8.2)
[2023-03-17 04:22] LABS: Red Cell Distribution Width 35.1 % (11.8-14.3)
[2023-03-17 04:25] LABS: Hemoglobin 6.9 g/dL (13.5-17.5)
[2023-03-17] MEDS ORDERED: VANCOMYCIN 750mg/250ml 250 ML IV SCH (09:00)
[2023-03-17] MEDS: PANTOPRAZOLE 40 MG/10 ML VIAL INJ IV SCH (10:34)
[2023-03-17] MEDS: FOLIC ACID 1 MG TAB PO SCH (10:34)
[2023-03-17] MEDS: VANCOMYCIN 750mg/250ml 250 ML IV SCH ×2 (12:09→20:06)
[2023-03-17] MEDS ORDERED: CEFEPIME 2 GM in D5W 5% 50 ML IV SCH (13:00)
[2023-03-17] MEDS ORDERED: LORazepam 2MG/ML-1ML VIAL IM PRN (13:15)
[2023-03-17] MEDS: SODIUM CHLORIDE 0.9% 1,000 ML IV SCH ×2 (15:10→17:31)
[2023-03-17] MEDS ORDERED: HYDROcodone-ACET 5/325MG TAB PO ONE (21:30)
[2023-03-17] MEDS ORDERED: LOPERAMIDE HCL 2 MG CAP/TAB PO ONE (22:00)
[2023-03-18] MEDS: CEFEPIME 2 GM in SODIUM CHL 0.9% 50 ML IV SCH ×2 (01:49→16:15)
[2023-03-18] MEDS: SODIUM CHLORIDE 0.9% 1,000 ML IV SCH ×4 (01:49→19:55)
[2023-03-18] MEDS: VANCOMYCIN 750mg/250ml 250 ML IV SCH ×3 (04:19→19:56)
[2023-03-18 05:00] VITALS: BP 95/55
[2023-03-18 05:32] LABS: Lymphocytes % (auto) 1.1 % (10.0-50.0); Mean Corpuscular Volume 70.6 fL (80.0-100.0); Monocytes # (auto) 0.6 10 ^3/uL (0-1.3); White Blood Cell 13.8 10^3/uL (4.4-10.8)
[2023-03-18 05:33] LABS: Basophils # (auto) 0 10 ^3/uL (0-0.2); Basophils % (auto) 0.2 % (0.0-2.0); Eosinophils # (auto) 0.2 10 ^3/uL (0-0.8); Eosinophils % (auto) 1.6 % (0.0-7.0); Hematocrit 23.9 % (41.0-53.0); Hemoglobin 7.8 g/dL (13.5-17.5); Lymphocytes # (auto) 0.1 10 ^3/uL (0.4-5.4); Mean Corpuscular Hemoglobin 23.1 pg (28.0-32.0); Mean Corpuscular Hgb Conc. 32.7 g/dL (32.0-36.0); Monocytes % (auto) 4.3 % (0.0-12.0); Neutrophils # (auto) 12.8 10 ^3/uL (1.6-8.6); Neutrophils % (auto) 92.8 % (37.0-80.0); Red Blood Cells 3.39 10^6/uL (4.5-5.90)
[2023-03-18 05:37] LABS: Red Cell Distribution Width 36.1 % (11.8-14.3)
[2023-03-18 08:00] VITALS: BP 101/61
[2023-03-18] MEDS: FOLIC ACID 1 MG TAB PO SCH (08:57)
[2023-03-18] MEDS: PANTOPRAZOLE 40 MG/10 ML VIAL INJ IV SCH (08:57)
[2023-03-18 11:57] VITALS: BP 105/54
[2023-03-18] MEDS ORDERED: DIPH2.5T73 PO (12:31)
[2023-03-18 16:00] VITALS: BP 108/62
[2023-03-18 22:00] VITALS: BP 103/59
[2023-03-19] MEDS: CEFEPIME 2 GM in SODIUM CHL 0.9% 50 ML IV SCH ×2 (01:10→13:38)
[2023-03-19] MEDS: SODIUM CHLORIDE 0.9% 1,000 ML IV SCH ×3 (02:35→15:55)
[2023-03-19] MEDS: VANCOMYCIN 750mg/250ml 250 ML IV SCH ×2 (04:00→12:22)
[2023-03-19 05:00] VITALS: BP 106/60
[2023-03-19 07:50] VITALS: BP 101/93
[2023-03-19 08:00] VITALS: BP 101/62
[2023-03-19] MEDS: PANTOPRAZOLE 40 MG/10 ML VIAL INJ IV SCH (09:26)
[2023-03-19] MEDS: FOLIC ACID 1 MG TAB PO SCH (09:26)
[2023-03-19 12:00] VITALS: BP 102/55
[2023-03-19 15:52] VITALS: BP 102/55
[2023-03-19 16:00] VITALS: BP 109/55
== END 2023-03-19 17:16 | disposition home or self-care (01) | DRG 720 ==
LOC: EDBD 18:27 → ER 18:27 → TELE 23:14 → TELE-EAST 03-17 03:08
PROVIDERS: ADMIT Nurse Practitioner Family; ATTEND Internal Medicine
PROC: 30233N1 Transfusion of Nonautologous Red Blood Cells into Peripheral Vein, Percutaneous Approach (ICD-10-PCS; principal; 2023-03-17)
DX: A41.9 Sepsis, unspecified organism (principal); D63.8 Anemia in other chronic diseases classified elsewhere; Z20.822 Contact with and (suspected) exposure to COVID-19; R79.89 Other specified abnormal findings of blood chemistry; K52.9 Noninfective gastroenteritis and colitis, unspecified
CPT/HCPCS: 36415; 36430; 71045; 74018; 74176; 80053; 80202; 81001; 83690; 83880; 84484; 85025; 85610; 86850; 86900; 86901; 86920; 87040; 87081; 87426; 87804; 93005; 96365; 96375; C9113; G0378; J0696; J2405; J7060; P9047

== ENCOUNTER 2023-06-26 14:29 | Emergency (ER) | payer MEDICAID ==
[~2023-06-26] VITALS: Ht 162.6 cm; Wt 53.3 kg
[~2023-06-26 14:29] MED LIST changes: +DIPH2.5T73 PO
[2023-06-26 16:43] VITALS: BP 121/70; PULSE 109; RESP 16; TEMP 98.8; O2SAT 98
[2023-06-26] MEDS ORDERED: TRIA0.02 TOP (16:55)
[2023-06-26] MEDS ORDERED: ACYC1TAB3 PO (16:55)
[2023-06-26] MEDS ORDERED: TRAM50TA2 PO (16:55)
[2023-06-26] MEDS ORDERED: HYDROcodone-ACET 5/325MG TAB PO ONE (17:00)
== END 2023-06-26 17:16 | disposition home or self-care (01) ==
LOC: ER 14:29
DX: B02.9 Zoster without complications (principal)

== ENCOUNTER 2024-12-12 21:49 | Emergency (ER) | payer OTHER, MEDICAID ==
[~2024-12-12] VITALS: Ht 165.1 cm; Wt 59.0 kg
[~2024-12-12 21:49] MED LIST changes: +ACYC1TAB3 PO; +TRIA0.02 TOP
--- NOTE | 2024-12-12 22:30 | DVH ---
Procedure: XY ACUTE AB SERIES Exam Date: 12/12/2024 10:09 PM History: pain Comparison Study: None Technique: AP of the chest AP upright of the abdomen AP supine of the abdomen FINDINGS: No focal evidence of airspace disease. The cardiomediastinal silhouette is within normal limits. No acute osseous lesions. Nonobstructive bowel gas pattern noted. There is no evidence for pneumoperitoneum. No abnormal calcif ications noted. Stool throughout the colon IMPRESSION: 1. Non-specific gas-filled loops of bowel. 2.
[2024-12-12 22:32] LABS: Basophils # (auto) 0 10 ^3/uL (0-0.2); Basophils % (auto) 0.8 % (0.0-2.0); Eosinophils # (auto) 0.2 10 ^3/uL (0-0.8); Eosinophils % (auto) 2.7 % (0.0-7.0); Hematocrit 43.4 % (41.0-53.0); Lymphocytes # (auto) 2.5 10 ^3/uL (0.4-5.4); Lymphocytes % (auto) 40.5 % (10.0-50.0); Mean Corpuscular Hgb Conc. 34.5 g/dL (32.0-36.0); Mean Corpuscular Volume 101.4 fL (80.0-100.0); Monocytes # (auto) 0.8 10 ^3/uL (0-1.3); Monocytes % (auto) 12.5 % (0.0-12.0); Neutrophils # (auto) 2.7 10 ^3/uL (1.6-8.6); Neutrophils % (auto) 43.5 % (37.0-80.0); Nucleated Red Blood Cells % 0.2 %; Platelet Count (auto) 235 10^3/uL (140-450); Red Blood Cells 4.28 10^6/uL (4.5-5.90); Red Cell Distribution Width 14.7 % (11.8-14.3); White Blood Cell 6.1 10^3/uL (4.4-10.8)
--- NOTE | 2024-12-12 22:43 | ED.PDOC ---
History of Present Illness HPI Comments 64 y/o M, with a history of lymphoma, is [id number] for c/o abdominal pain, today. Patient endorses on sudden onset of pain after consuming 2x shots of tequila, earlier, this evening. Upon arrival to ED, patient comments on pain subsiding and feeling better, now. He comments on current chemotherapy treatment for lymphoma, with last session being 2x weeks ago. Chief Complaint: Abdominal Pain Time Seen by MD: 21:50 Primary Care Provider: UNKNOWN Reviewed Notes: Nurses Notes, Brick Tester Notes, Medications, Allergies Allergies: Coded Allergies: NO KNOWN ALLERGIES (Unverified , 10/22/22) Home Meds Active Scripts Triamcinolone Acetonide (Triamcinolone Acetonide) 0.025 % Cre, 1 APPLIC TOP BID, #30 GRAMS Prov:KRISTEN CUMMINGS 06/26/23 Acyclovir (Acyclovir) 800 Mg Tab, 800 MG PO QID for 7 Days, #28 TAB Prov:KRISTEN CUMMINGS 06/26/23 Amoxicillin & Pot Clavulanate (Augmentin) 500 Mg Tab, 1 TAB PO BID, #14 TAB Prov:MARCELO LOPEZ MD 03/01/23 Ferrous Sulfate (Iron) 325 Mg Tab, 325 MG PO BID, #180 TAB Prov:IESHA ZIMMER MD 04/29/22 Folic Acid (Folic Acid) 1 Mg Tab, 1 MG PO DAILY, #30 TAB Prov:IESHA ZIMMER MD 04/29/22 Thiamine Hcl (Thiamine Hcl) 100 Mg Tab, 1 TAB PO DAILY, #30 TAB 3 Refills Prov:IESHA ZIMMER MD 04/29/22 Pantoprazole Sodium Sesquihydr (Pantoprazole Sodium) 40 Mg Tab, 40 MG PO DAILY, #30 TAB Prov:IESHA ZIMMER MD 04/29/22 Reported Medications Diphenoxylate W/ Atropine (Lomotil) 2.5 Mg Tab, 1 TAB PO TID for 5 Days, #15 TAB 03/18/23 Diphenoxylate W/ Atropine (Lomotil) 2.5 Mg Tab, 1 TAB PO TID for 5 Days, #15 TAB 03/18/23 Information Source: Patient, Emergency Med Personnel Mode of Arrival: EMS Severity: Moderate Timing: Hours Duration: Since onset Prehospital treatment: 12 Lead EKG, Fee Clerk Past Medical History PAST MEDICAL HISTORY: Anemia, Cancer (lymphoma) Surgical History: Denies all surgeries Family History Family History: Reviewed,noncontributory to illness Social History Smoker: Non-Smoker Alcohol: Occasionally Drugs: Denies Drug Use Lives In: Home All Other Systems: Reviewed and Negative (comprehensive overview of systems negative unless otherwise stated in HPI) Physical Exam General Appearance: No Apparent Distress, Normal HEENT: Normal ENT Inspection, Pharynx Normal, TMs Normal Neck: Full Range of Motion, Non-Tender, Normal, Normal Inspection, Other (no abnormal lymph nodes) Respiratory: Chest Non-Tender, Lungs Clear, No Accessory Muscle Use, No Respiratory Distress, Normal Breath Sounds Cardiovascular: No Edema, No JVD, No Murmur, No Gallop, Normal Peripheral Pulses, Regular Rate/Rhythm Breast Exam: Deferred Gastrointestinal: No Organomegaly, Non Tender, No Pulsatile Mass, Normal Bowel Sounds, Soft, Other (nondistended ) Genitalia: Deferred Pelvic: Deferred Rectal: Deferred Extremities: No calf tenderness, Normal capillary refill, Normal inspection, Normal range of motion, Non-tender, No pedal edema Musculoskeletal : Apperance: Normal Neurologic: Alert, child specialist II-XII nml as Tested, No Motor Deficits, Normal Affect, Normal Mood, No Sensory Deficits Cerebellar Function: Normal Reflexes: Normal Skin: Dry, Normal Color, Warm Lymphatic: No Adenopathy Was a procedure done? Was a procedure done?: No Differential Dx Considerations may include: gastritis, gastroenteritis, GERD, pancreatitis, acute abdomen, pancreatitis, sbo, ischemic bowel, constipation, ileus X-Ray, Labs, Meds, VS Vital Signs Date Time Temp Pulse Resp B/P (MAP) Pulse Ox O2 Delivery O2 Flow Rate FiO2 12/12/24 22:00 88 12/12/24 21:56 97.5 88 16 125/81 (96) 98 Lab Test 12/12/24 22:22 Range/Units White Blood Count 6.1 4.4-10.8 10^3/uL Red Blood Count 4.28 L 4.5-5.90 10^6/uL Hemoglobin 15.0 13.5-17.5 g/dL Hematocrit 43.4 41.0-53.0 % Mean Corpuscular Volume 101.4 H 80.0-100.0 fL Mean Corpuscular Hemoglobin 35.0 H 28.0-32.0 pg Mean Corpuscular Hemoglobin Concent 34.5 32.0-36.0 g/dL Red Cell Distribution Width 14.7 H 11.8-14.3 % Platelet Count 235 140-450 10^3/uL Mean Platelet Volume 9.0 6.9-10.8 fL Neutrophils (%) (Auto) 43.5 37.0-80.0 % Lymphocytes (%) (Auto) 40.5 10.0-50.0 % Monocytes (%) (Auto) 12.5 H 0.0-12.0 % Eosinophils (%) (Auto) 2.7 0.0-7.0 % Basophils (%) (Auto) 0.8 0.0-2.0 % Neutrophils # (Auto) 2.7 1.6-8.6 10 ^3/uL Lymphocytes # (Auto) 2.5 0.4-5.4 10 ^3/uL Monocytes # (Auto) 0.8 0-1.3 10 ^3/uL Eosinophils # (Auto) 0.2 0-0.8 10 ^3/uL Basophils # (Auto) 0 0-0.2 10 ^3/uL Nucleated Red Blood Cells 0.2 % Sodium Level 135 L 136-145 mmol/L Potassium Level 4.0 3.5-5.1 mmol/L Chloride Level 99 98-107 mmol/L Carbon Dioxide Level 25 20-31 mmol/L Anion Gap 11 5-15 Blood Urea Nitrogen 7 L 9-23 mg/dL Creatinine 0.79 0.700-1.30 mg/dL Glomerular Filtration Rate Calc 98 >90 mL/min BUN/Creatinine Ratio 8.9 L 10.0-20.0 Serum Glucose 141 H 74-106 mg/dL Calcium Level 9.1 8.7-10.4 mg/dL Total Bilirubin 0.4 0.2-1.0 mg/dL Aspartate Amino Transferase (AST) 57 H 13-40 U/L Alanine Aminotransferase (ALT) 60 H 7-40 U/L Alkaline Phosphatase 146 H 46-116 U/L Total Protein 7.0 5.7-8.2 g/dL Albumin 4.4 3.2-4.8 g/dL Lipase 52 12-53 U/L [facility] [id number] [facility] [address] Ph: [phone] DIAGNOSTIC IMAGING Diagnostic Imaging Report : [id number] Signed PATIENT: PATRICIA MOREL ACCT: [id number] UNIT: [id number] : 1960 LOC: ER ROOM / BED: / AGE / SEX: 64 / M ADM STATUS: REG ER SERVICE 58 ORDERING PHYSICIAN: SHIRIN HINES MD PROCEDURE(s): ACABD - ACUTE AB SERIES REASON: pain ORDER NUMBER(s): [id number], ACCESSION NUMBER(s): [id number] Procedure: XY ACUTE AB SERIES Exam Date: 12/12/2024 10:09 PM History: pain Comparison Study: None Technique: AP of the chest AP upright of the abdomen AP supine of the abdomen FINDINGS: No focal evidence of airspace disease. The cardiomediastinal silhouette is within normal limits. No acute osseous lesions. Nonobstructive bowel gas pattern noted. There is no evidence for pne umoperitoneum. No abnormal calcifications noted. Stool throughout the colon IMPRESSION: 1. Non-specific gas-filled loops of bowel. 2. ATED BY: DANIA REYES Jr., DO DICTATED DATE/TIME: 12/12/242227 SIGNED BY: DANIA REYES Jr., SIGNED DATE/TIME: 12/12/242227 CC: Time of 1ST Reevaluation: 22:20 Reevaluation 1ST: Improved Time of 2ND Reevaluation: 23:28 Reevaluation 2ND: Resolved Patient Education/Counseling: Diagnosis, Treatment Family Education/Counseling: No Family Present Additional Information -Reviewed patient's previous visit(s): admission discharge summary report on 03/19/23 - The following tests were ordered, and results were reviewed by me: EKG, acute AB series, lipase, CMP, CBC - Additional information was gathered from interviewing the following independent Historian: EMS - I reviewed and agreed with the following test results read by other provider: acute AB series - I discussed treatments and results with medical personnel pt had no symptoms when he arrived. he reports abdominal pain after drinking tequila, but does not have pancreatitis. the workup is unremarkable. pt may have gastritis. i will start him on protonix. pt is stable for discharge Departure 1 Departure Time of Disposition: 23:38 Impression: Primary Impression: Abdominal pain Qualified Codes: R10.13 - Epigastric pain Additional Impression: Alcohol abuse Disposition: HOME / SELF CARE / HOMELESS Condition: Good e-Prescriptions Pantoprazole Sodium Sesquihydr (Protonix) 40 Mg Tab 40 MG PO DAILY, #30 TAB Prov: SHIRIN HINES MD 12/12/24 Discharged With: Self Critical Care Note Critical Care Time?: No Stability Stability form required: No Heart Score Heart Score: Heart Score Response (Comments) Value History N/A 0 EKG N/A 0 Age N/A 0 Risk Factors N/A 0 Troponin N/A 0 Total 0 I personally scribed for SHIRIN HINES MD ([email or web address]) on 12/12/24 at 22:43. Electronically submitted by Corwin Fuller ([email or web address]). I personally scribed for SHIRIN HINES MD ([email or web address]) on 12/12/24 at 22:43. Electronically submitted by Corwin Fuller ([email or web address]). SHIRIN HINES MD Dec 12, 2024 22:43
[2024-12-12 22:47] LABS: Albumin 4.4 g/dL (3.2-4.8); Anion Gap 11 (5-15); BUN/Creatinine Ratio 8.9 (10.0-20.0); Calcium 9.1 mg/dL (8.7-10.4); Carbon Dioxide 25 mmol/L (20-31); Chloride 99 mmol/L (98-107); Lipase 52 U/L (12-53)
[2024-12-12 22:48] LABS: Bilirubin, Total 0.4 mg/dL (0.2-1.0)
[2024-12-12 22:57] LABS: Alanine Aminotransferase 60 U/L (7-40); Alkaline Phosphatase 146 U/L (46-116); Aspartate Aminotransferase 57 U/L (13-40); Blood Urea Nitrogen 7 mg/dL (9-23); Glucose 141 mg/dL (74-106); Sodium 135 mmol/L (136-145)
[2024-12-12] MEDS ORDERED: PANT40TA2 PO (23:40)
[2024-12-13 02:19] VITALS: BP 114/69; PULSE 98; RESP 12; TEMP 98.7; O2SAT 93
--- NOTE | 2024-12-13 06:09 | ECG ---
[facility] Test Date: 2024-12-12 Test Time: 22:00:31 Pat Name: PATRICIA MOREL Department: er Room: Gender: M Colleter: ricadro : 1960 Requested By: SHIRIN HINES Order Number: [id number] Reading MD: Measurements Intervals Ballinger Rate: 88 P: 51 [place]: 141 QRS: 80 QRSD: 82 T: 60 QT: 387 QTc: 469 Interpretive Statements Sinus rhythm Please click the below link to view image of tracing.
== END 2024-12-13 02:20 | disposition home or self-care (01) ==
LOC: ER 21:49 → EDBD 21:49 → ER 12-13 02:20
DX: R10.9 Unspecified abdominal pain (principal); F10.10 Alcohol abuse, uncomplicated; Z86.2 Personal history of diseases of the blood and blood-forming organs and certain disorders involving the immune mechanism; Z79.899 Other long term (current) drug therapy; Y90.9 Presence of alcohol in blood, level not specified
CPT/HCPCS: 36415; 74022; 80053; 83690; 85025; 93005